=== PATIENT | male | born 1980 | race Two or more races ===

== ENCOUNTER 2020-07-28 16:39 | Inpatient (IN) | payer BC, MEDICAID ==
[~2020-07-28] VITALS: Ht 167.6 cm; Wt 71.1 kg
[2020-07-28] MEDS ORDERED: normal saline 1000ml 1,000 ML IV ONE ×2 (20:25→21:15)
[2020-07-28 20:56] LABS: CLARITY,URINE CLEAR (Clear); COLOR,URINE YELLOW (Yellow); GLUCOSE, URINE 500 mg/dl (Neg); KETONES,URINE >=80 mg/dl (Neg); LEUKOCYTE ESTERASE ,URINE NEGATIVE (Neg); NITRITES, URINE NEGATIVE (Neg); OCCULT BLOOD,URINE MODERATE (Neg); PH,URINE 5.5 (4.8-8.0); PROTEIN,URINE 100 mg/dl (Neg); UROBILINOGEN,URINE 0.2 E.U/dL (0.2-1.0)
[2020-07-28 21:04] LABS: ALBUMIN 4.7 G/DL (3.4-5.0); ANION GAP 25 (8-16); BLOOD UREA NITROGEN 11 MG/DL (7-18); BUN/CREATININE RATIO 9.1 (5.4-32.0); CHLORIDE 101 MMOL/L (99-107); CREATININE 1.21 MG/DL (0.60-1.10); GLUCOSE 241 MG/DL (70-104); SODIUM 136 MMOL/L (135-145); eGFR 67 ML/MIN
[2020-07-28 21:05] LABS: POTASSIUM 3.6 MMOL/L (3.5-5.1)
[2020-07-28 21:07] LABS: UA COLLECTION TYPE CLN CATCH MIDSTREAM
[2020-07-28 21:08] LABS: TOTAL CARBON DIOXIDE 10.2 MMOL/L (24-32)
[2020-07-28] MEDS ORDERED: insulin regular, human U-100 3ml vial - multi-dose IV PRN (21:10)
[2020-07-28] MEDS ORDERED: potassium Cl 20 mEq SR tablet PO PRN ×2 (21:10)
[2020-07-28] MEDS ORDERED: potassium CL 10mEq/100ml bag 100 ML IV PRN ×2 (21:10)
[2020-07-28] MEDS ORDERED: sodium bicarbonate (8.4%) inj. 50 MEQ in dextrose 5% water 500ml 250 ML IV PRN (21:10)
[2020-07-28] MEDS ORDERED: normal saline 1000ml 1,000 ML IV SCH (21:10)
[2020-07-28] MEDS ORDERED: potassium CL 20mEq in D5-1/2NS 1,000 ML IV PRN (21:10)
[2020-07-28] MEDS ORDERED: sodium phosphate inj. 15 MMOL in dextrose 5%-water 250 ML IV PRN (21:10)
[2020-07-28] MEDS ORDERED: sodium bicarbonate (8.4%) inj. 100 MEQ in dextrose 5% water 500ml 500 ML IV PRN (21:10)
[2020-07-28] MEDS ORDERED: Neutra Phos packet PO PRN (21:10)
[2020-07-28] MEDS ORDERED: sodium phosphate inj. 30 MMOL in dextrose 5%-water 250 ML IV PRN (21:10)
[2020-07-28 21:38] LABS: BASOPHILS % (AUTO) 0.2 % (0-1); EOSINOPHILS % (AUTO) 0.1 % (0-6); HEMATOCRIT 54.6 % (42.0-52.0); HEMOGLOBIN 17.9 g/dl (14.0-17.9); LYMPHOCYTES # (AUTO) 0.6 X10'3 (1.1-4.8); LYMPHOCYTES % (AUTO) 10.5 % (21-51); MEAN CORPUSCULAR HEMOGLOBIN 29.9 PG (27.0-31.0); MEAN CORPUSCULAR HGB CONC 32.8 g/dL (33.0-36.5); MEAN PLATELET VOLUME 9.3 FL (7.4-10.4); MONOCYTES # (AUTO) 0.3 X10'3 (0-0.9); MONOCYTES % (AUTO) 4.9 % (2-12); NEUTROPHILS # (AUTO) 5.2 X10'3 (1.8-7.7); NEUTROPHILS % (AUTO) 84.3 % (42-75); PLATELET COUNT 250 X10'3 (140-440); RED CELL DISTRIBUTION WIDTH 13.9 % (11.5-14.5); WHITE BLOOD COUNT 6.1 X10'3 (4.5-11.0)
[2020-07-28 21:39] LABS: PHOSPHORUS 3.2 MG/DL (2.3-4.5)
[2020-07-28 22:10] LABS: BACTERIA,URINE FEW /HPF (Neg); SQUAMOUS EPITHELIAL CELL,UR FEW /LPF (FEW); WBC,URINE 0-4 /HPF (0-4)
[2020-07-28 22:11] LABS: MUCUS STRANDS FEW /LPF (Neg)
[2020-07-28] MEDS ORDERED: NO HOME MEDS (22:14)
[2020-07-28] MEDS: Insulin Reg/NS 100units/100mL 100 ML IV SCH (22:48)
[2020-07-28] MEDS ORDERED: mag hydrox/Alum hydrox/simeth 30ml oral suspension PO ONE (23:15)
--- NOTE | 2020-07-28 23:18 | NUR ---
At time of IV insulin administration, Blood glucose 194. 10 unit insulin bolus not administered. VBpH 7.043, bicarb not administered per protocol. New order for Maalox for pt C/O heart burn
[2020-07-28] MEDS ORDERED: insulin regular, human 10 units/0.1 ml syringe SQ PRN (23:45)
[2020-07-29] MEDS ORDERED: potassium Cl 20 mEq SR tablet PO PRN ×4 (00:30)
[2020-07-29] MEDS ORDERED: insulin regular, human U-100 3ml vial - multi-dose IV PRN (00:30)
[2020-07-29] MEDS ORDERED: sodium phosphate inj. 15 MMOL in dextrose 5%-water 250 ML IV PRN (00:30)
[2020-07-29] MEDS ORDERED: magnesium 2GM in 50ml NS 50 ML IV PRN (00:30)
[2020-07-29] MEDS ORDERED: magnesium 4gm in 100ml NS 100 ML IV PRN (00:30)
[2020-07-29] MEDS ORDERED: magnesium hydroxide 30ml (MOM) UD suspension PO PRN (00:30)
[2020-07-29] MEDS ORDERED: HYDROcodone/acetaminophen 5mg/325mg tablet PO PRN (00:30)
[2020-07-29] MEDS ORDERED: sodium bicarbonate (8.4%) inj. 100 MEQ in dextrose 5% water 500ml 500 ML IV PRN (00:30)
[2020-07-29] MEDS ORDERED: sodium bicarbonate (8.4%) inj. 50 MEQ in dextrose 5% water 500ml 250 ML IV PRN (00:30)
[2020-07-29] MEDS ORDERED: HYDROcodone/acetaminophen 10/325mg tab PO PRN (00:30)
[2020-07-29] MEDS ORDERED: acetaminophen 325mg tablet PO PRN ×2 (00:30)
[2020-07-29] MEDS ORDERED: mag hydrox/Alum hydrox/simeth 30ml oral suspension PO PRN (00:30)
[2020-07-29] MEDS ORDERED: potassium CL 10mEq/100ml bag 100 ML IV PRN ×2 (00:30)
[2020-07-29] MEDS ORDERED: Neutra Phos packet PO PRN (00:30)
[2020-07-29] MEDS ORDERED: sodium phosphate inj. 30 MMOL in dextrose 5%-water 250 ML IV PRN (00:30)
[2020-07-29] MEDS ORDERED: ondansetron/PF 4mg/2ml inj IV PRN (00:30)
[2020-07-29] MEDS ORDERED: ipratropium/albuterol 3ml nebule NEB PRN (00:30)
[2020-07-29 01:10] LABS: ABG BASE EXCESS -16.6 mmol/L (-2.0-2.0); ABG HCO3 7.9 mmol/L (22.0-26.0); ABG OXYGEN SATURATION 98.2 % (94-97); ABG PO2 (T) 113.3 mmHg (75.0-100.0); FCOHb 0.3 % (0.0-3.9); FMetHb 0.3 % (0.0-1.5); FO2Hb 97.6 % (94-97); TOTAL HEMOGLOBIN 15.4 G/dl (14.0-18.0)
[2020-07-29 01:24] LABS: ALBUMIN 3.3 G/DL (3.4-5.0); ANION GAP 21 (8-16); BLOOD UREA NITROGEN 8 MG/DL (7-18); BUN/CREATININE RATIO 7.9 (5.4-32.0); CHLORIDE 107 MMOL/L (99-107); CREATININE 1.01 MG/DL (0.60-1.10); GLUCOSE 156 MG/DL (70-104); SODIUM 139 MMOL/L (135-145); eGFR 83 ML/MIN
[2020-07-29 01:27] LABS: POTASSIUM 2.6 MMOL/L (3.5-5.1); TOTAL CARBON DIOXIDE 10.9 MMOL/L (24-32)
[2020-07-29] MEDS: normal saline 1000ml 1,000 ML IV SCH ×9 (01:38→22:11)
[2020-07-29] MEDS: Insulin Reg/NS 100units/100mL 100 ML IV SCH ×3 (01:39→20:30)
--- NOTE | 2020-07-29 01:39 | NUR ---
CRITICAL LABS K 2.6, CO2 10.9, Phos 1, aware. Will replace according to protocol
[2020-07-29] MEDS: potassium CL 10mEq/100ml bag 100 ML IV PRN ×6 (01:48→21:03)
--- NOTE | 2020-07-29 01:58 | NUR ---
Patient resting comfortably with no requests. Spoke to Dr. Gipson regarding phosphorous of 1.0 and he requests 2 NAPH packets now and then follow normal replacement.
[2020-07-29] MEDS ORDERED: Neutra Phos packet PO ONE (02:00)
[2020-07-29] MEDS ORDERED: Neutra Phos packet PO SCH (02:00)
--- NOTE | 2020-07-29 03:40 | NUR ---
Blood glucose 119 and D5+20K+1/2NS at 250 ml/hr. New orders to decrease insulin at 5 units an hour and continue fluid as ordered.
[2020-07-29 04:33] LABS: ALBUMIN 2.8 G/DL (3.4-5.0); ANION GAP 17 (8-16); BLOOD UREA NITROGEN 8 MG/DL (7-18); CALCIUM 7.2 MG/DL (8.5-10.1); CHLORIDE 108 MMOL/L (99-107); CREATININE 0.89 MG/DL (0.60-1.10); GLUCOSE 129 MG/DL (70-104); SODIUM 138 MMOL/L (135-145); eGFR > 90 ML/MIN
[2020-07-29] MEDS: potassium CL 20mEq in D5-1/2NS 1,000 ML IV PRN ×3 (04:34→13:22)
[2020-07-29 04:41] LABS: POTASSIUM 2.9 MMOL/L (3.5-5.1); TOTAL CARBON DIOXIDE 13.3 MMOL/L (24-32)
--- NOTE | 2020-07-29 04:48 | NUR ---
Potassium 2.9, CO2 13.3, PHOS 1
--- NOTE | 2020-07-29 06:13 | NUR ---
notified of Blood Glucose of 97. New orders to Lower insulin to 1 unit/hr. and feed patient
[2020-07-29] MEDS ORDERED: K and/or MAG REPLACEMENT MC SCH ×2 (08:00)
[2020-07-29] MEDS: K and/or MAG REPLACEMENT MC SCH ×2 (08:00→20:00)
[2020-07-29 08:41] LABS: BASOPHILS % (AUTO) 0.2 % (0-1); EOSINOPHILS # (AUTO) 0.1 X10'3 (0-0.9); EOSINOPHILS % (AUTO) 0.9 % (0-6); HEMATOCRIT 39.4 % (42.0-52.0); HEMOGLOBIN 13.5 g/dl (14.0-17.9); LYMPHOCYTES # (AUTO) 1.2 X10'3 (1.1-4.8); LYMPHOCYTES % (AUTO) 21.3 % (21-51); MEAN CORPUSCULAR HEMOGLOBIN 30.5 PG (27.0-31.0); MEAN CORPUSCULAR HGB CONC 34.2 g/dL (33.0-36.5); MEAN CORPUSCULAR VOLUME 89.3 FL (78-98); MEAN PLATELET VOLUME 8.6 FL (7.4-10.4); MONOCYTES # (AUTO) 0.7 X10'3 (0-0.9); MONOCYTES % (AUTO) 11.3 % (2-12); NEUTROPHILS # (AUTO) 3.8 X10'3 (1.8-7.7); NEUTROPHILS % (AUTO) 66.3 % (42-75); PLATELET COUNT 158 X10'3 (140-440); RED BLOOD COUNT 4.41 X10'6 (4.70-6.10); RED CELL DISTRIBUTION WIDTH 13.4 % (11.5-14.5); WHITE BLOOD COUNT 5.8 X10'3 (4.5-11.0)
[2020-07-29 08:55] LABS: ALBUMIN 2.8 G/DL (3.4-5.0); ANION GAP 12 (8-16); BLOOD UREA NITROGEN 7 MG/DL (7-18); BUN/CREATININE RATIO 8.2 (5.4-32.0); CALCIUM 7.2 MG/DL (8.5-10.1); CHLORIDE 107 MMOL/L (99-107); CREATININE 0.85 MG/DL (0.60-1.10); GLUCOSE 159 MG/DL (70-104); MAGNESIUM 1.8 MG/DL (1.5-2.4); PHOSPHORUS 1.3 MG/DL (2.3-4.5); POTASSIUM 3.5 MMOL/L (3.5-5.1); SODIUM 136 MMOL/L (135-145); TOTAL CARBON DIOXIDE 16.7 MMOL/L (24-32); eGFR > 90 ML/MIN
[2020-07-29 16:31] LABS: ALANINE AMINOTRANSFERASE 23 U/L (12-78); ALBUMIN 3.3 G/DL (3.4-5.0); ALKALINE PHOSPHATASE 107 IU/L (46-116); ANION GAP 11 (8-16); ASPARTATE AMINO TRANSFERASE 12 U/L (10-37); BILIRUBIN,TOTAL 0.7 MG/DL (0.1-1.0); BLOOD UREA NITROGEN 5 MG/DL (7-18); BUN/CREATININE RATIO 6.2 (5.4-32.0); CALCIUM 7.9 MG/DL (8.5-10.1); CHLORIDE 104 MMOL/L (99-107); CREATININE 0.81 MG/DL (0.60-1.10); GLUCOSE 168 MG/DL (70-104); SODIUM 135 MMOL/L (135-145); TOTAL CARBON DIOXIDE 20.5 MMOL/L (24-32); TOTAL PROTEIN 6.7 G/DL (6.4-8.2); eGFR > 90 ML/MIN
[2020-07-29 16:33] LABS: PHOSPHORUS 1.1 MG/DL (2.3-4.5); POTASSIUM 2.6 MMOL/L (3.5-5.1)
--- NOTE | 2020-07-29 17:58 | NUR ---
ORDERS FROM DR KIM, GO TO 2 UNITS/HR AND FLUIDS TO 100ML/HR. GIVE 12 UNITS OF LANTUS WAIT 2 HOURS AND THEN FEED THE PT. DFR JUDY NOTIFIED OF LAB DRAW AT 1602.
--- NOTE | 2020-07-29 19:45 | NUR ---
Patient in room ED 14. I have received report from Tess CHEN from the ED and had the opportunity to ask questions and assume patient care.
[2020-07-29] MEDS ORDERED: enoxaparin 40mg/0.4ml syringe SQ SCH (20:00)
[2020-07-29] MEDS ORDERED: dextrose ORAL solution 15 GM/59 ML bottle PO PRN ×2 (20:45)
[2020-07-29] MEDS ORDERED: dextrose 50%-water 50ml dispensing syringe IV PRN ×2 (20:45)
[2020-07-29] MEDS ORDERED: insulin Lispro (HumaLOG) vial - multi-dose SQ SCH (20:45)
[2020-07-29] MEDS ORDERED: MESSAGE TO PHARMACY PO ONE (20:45)
[2020-07-29] MEDS ORDERED: glucagon, human recombinant 1mg kit SUBCUT PRN (20:45)
[2020-07-29] MEDS ORDERED: insulin glargine (Lantus) pen - multi-dose SQ SCH (21:00)
[2020-07-29 22:00] VITALS: BP 127/85
[2020-07-30] MEDS: potassium CL 10mEq/100ml bag 100 ML IV PRN ×5 (00:45→04:52)
--- NOTE | 2020-07-30 00:45 | NUR ---
fourth bag of potassium 10mEq scanned but did not save. medication was given at 2245
[2020-07-30 02:00] VITALS: BP 125/93
[2020-07-30 05:52] LABS: BASOPHILS % (AUTO) 0.3 % (0-1); EOSINOPHILS # (AUTO) 0.1 X10'3 (0-0.9); EOSINOPHILS % (AUTO) 1.2 % (0-6); HEMATOCRIT 42.1 % (42.0-52.0); HEMOGLOBIN 14.4 g/dl (14.0-17.9); LYMPHOCYTES # (AUTO) 1.6 X10'3 (1.1-4.8); LYMPHOCYTES % (AUTO) 27.3 % (21-51); MEAN CORPUSCULAR HEMOGLOBIN 30.2 PG (27.0-31.0); MEAN CORPUSCULAR HGB CONC 34.1 g/dL (33.0-36.5); MEAN CORPUSCULAR VOLUME 88.5 FL (78-98); MEAN PLATELET VOLUME 9.4 FL (7.4-10.4); MONOCYTES # (AUTO) 0.6 X10'3 (0-0.9); MONOCYTES % (AUTO) 9.8 % (2-12); NEUTROPHILS # (AUTO) 3.6 X10'3 (1.8-7.7); NEUTROPHILS % (AUTO) 61.4 % (42-75); PLATELET COUNT 185 X10'3 (140-440); RED BLOOD COUNT 4.76 X10'6 (4.70-6.10); WHITE BLOOD COUNT 5.9 X10'3 (4.5-11.0)
[2020-07-30 05:59] LABS: ALANINE AMINOTRANSFERASE 22 U/L (12-78); ALBUMIN/GLOBULIN RATIO 0.9 (1.1-1.5); ALKALINE PHOSPHATASE 98 IU/L (46-116); ANION GAP 14 (8-16); ASPARTATE AMINO TRANSFERASE 14 U/L (10-37); BILIRUBIN,TOTAL 0.6 MG/DL (0.1-1.0); BLOOD UREA NITROGEN 5 MG/DL (7-18); BUN/CREATININE RATIO 7.7 (5.4-32.0); CHLORIDE 105 MMOL/L (99-107); CREATININE 0.65 MG/DL (0.60-1.10); GLUCOSE 188 MG/DL (70-104); MAGNESIUM 1.8 MG/DL (1.5-2.4); PHOSPHORUS 1.7 MG/DL (2.3-4.5); POTASSIUM 3.1 MMOL/L (3.5-5.1); SODIUM 138 MMOL/L (135-145); TOTAL CARBON DIOXIDE 18.8 MMOL/L (24-32); TOTAL PROTEIN 6.2 G/DL (6.4-8.2); eGFR > 90 ML/MIN
[2020-07-30 06:00] VITALS: BP 130/86
--- NOTE | 2020-07-30 06:03 | NUR ---
Patient in room PCU 3009. I have received report from Yahir and had the opportunity to ask questions and assume patient care.
--- NOTE | 2020-07-30 06:34 | NUR ---
Problems reprioritized. Patient report given, questions answered & plan of care reviewed with Jessica CHEN and [employer].
[2020-07-30] MEDS: K and/or MAG REPLACEMENT MC SCH (08:00)
[2020-07-30] MEDS: normal saline 1000ml 1,000 ML IV SCH (08:23)
[2020-07-30 11:40] VITALS: BP 129/91
[2020-07-30] MEDS ORDERED: LANTUS SQ (12:09)
[2020-07-30] MEDS ORDERED: potassium Cl 20 mEq SR tablet PO STA (12:41)
--- NOTE | 2020-07-30 14:39 | NUR ---
Patient discharged via family and taken from unit via ambulation with x1 staff. Patient PIV x2 removed with cannulas intact. Patient alert, oriented and in no apparent distress at time of discharge. Patient was given discharge instructions which included the diabetes survival guide and information about hyperglycemia. Patient stated an understanding of both the symptoms of hyper and hypoglycemia. Patient was also educated on his new medication, Lantus. Patient understood that he will be taking his Lantus at bedtime. Patient was also given a prescription for Accu check machine as well as lancets and testing strips. Patient stated an understanding of how to check his sugar and felt prepared to take care of this at home. Patient stated that he has a follow up appointment already set for 2019. Patient stated an understanding of the importance of making it to this appointment. Patient took all belongings with him including his discharge instructions. Patient was given 4 mEq of K-Dur prior to discharge per MD order. MD also stated not to cover the 1200 blood sugar of 208 due to the risk of dropping the patient's blood sugar and him not being in the hospital for us to monitor.
--- NOTE | 2020-07-30 14:52 | NUR ---
[facility] called and stated that the Lantus is not covered by the patient's insurance and that the medication Basaglar would be. paged to ask if this can be changed. Awaiting response.
--- NOTE | 2020-07-30 15:02 | NUR ---
Spoke with MD about insulin change. MD agreed to Basaglar and 12 unit dose was confirmed for bedtime. [facility] called regarding this change and the pharmacist stated they would make the change. Will notify patient.
--- NOTE | 2020-07-30 15:10 | NUR ---
Patient was informed of the change in medications. Patient thanked us for the call.
== END 2020-07-30 13:49 | disposition home or self-care (01) | DRG 420 ==
LOC: ER 16:39 → ED HOLD 07-29 00:29 → PCU 3S 07-29 20:15
PROVIDERS: ADMIT Family Medicine; ATTEND Family Medicine
DX: E10.10 Type 1 diabetes mellitus with ketoacidosis without coma (principal); F12.90 Cannabis use, unspecified, uncomplicated; Z79.4 Long term (current) use of insulin; Z83.3 Family history of diabetes mellitus; Z91.14 Patient's other noncompliance with medication regimen; E87.6 Hypokalemia; E83.39 Other disorders of phosphorus metabolism
CPT/HCPCS: 36415; 36600; 80048; 80053; 81001; 82800; 82803; 82948; 83036; 83735; 84100; 85018; 85025; 87081; 96360; 99285; G0378; J1650; J1815; J3480; J7030

== ENCOUNTER 2023-02-25 09:47 | Emergency (ER) | payer MEDICAID, OTHER ==
[~2023-02-25] VITALS: Ht 167.6 cm; Wt 76.4 kg
[2023-02-25 09:56] VITALS: BP 134/93
[2023-02-25] MEDS ORDERED: NAPR-56 PO (10:42)
[2023-02-25] MEDS ORDERED: PENI250T2 PO (10:42)
== END 2023-02-25 11:00 | disposition home or self-care (01) ==
LOC: ER 09:47
DX: K08.89 Other specified disorders of teeth and supporting structures (principal); E11.9 Type 2 diabetes mellitus without complications; Z79.899 Other long term (current) drug therapy
CPT/HCPCS: 99283

== ENCOUNTER 2024-08-11 23:35 | Emergency (ER) | payer MEDICAID, OTHER ==
[~2024-08-11] VITALS: Ht 165.1 cm; Wt 69.5 kg
[2024-08-11 23:36] VITALS: TEMP 97.4
[2024-08-12 00:21] LABS: BASOPHILS % (AUTO) 0.3 % (0-1); EOSINOPHILS % (AUTO) 0.9 % (0-6); HEMATOCRIT 45.6 % (42.0-52.0); HEMOGLOBIN 15.2 g/dl (14.0-17.9); LYMPHOCYTES # (AUTO) 1.5 X10'3 (1.1-4.8); LYMPHOCYTES % (AUTO) 28.6 % (21-51); MEAN CORPUSCULAR HEMOGLOBIN 29.6 PG (27.0-31.0); MEAN CORPUSCULAR HGB CONC 33.4 g/dL (33.0-36.5); MEAN CORPUSCULAR VOLUME 88.6 FL (78-98); MEAN PLATELET VOLUME 8.6 FL (7.4-10.4); MONOCYTES # (AUTO) 0.5 X10'3 (0-0.9); MONOCYTES % (AUTO) 8.7 % (2-12); NEUTROPHILS # (AUTO) 3.2 X10'3 (1.8-7.7); NEUTROPHILS % (AUTO) 61.5 % (42-75); PLATELET COUNT 197 X10'3 (140-440); RED BLOOD COUNT 5.14 X10'6 (4.70-6.10); RED CELL DISTRIBUTION WIDTH 13.2 % (11.5-14.5); WHITE BLOOD COUNT 5.2 X10'3 (4.5-11.0)
[2024-08-12 00:31] LABS: ALANINE AMINOTRANSFERASE 22 U/L (12-78); ALBUMIN 3.6 G/DL (3.4-5.0); ALKALINE PHOSPHATASE 134 IU/L (46-116); ANION GAP 20 (8-16); ASPARTATE AMINO TRANSFERASE 18 U/L (10-37); BILIRUBIN,TOTAL 0.6 MG/DL (0.1-1.0); BLOOD UREA NITROGEN 13 MG/DL (7-18); CALCIUM 8.3 MG/DL (8.5-10.1); CHLORIDE 96 MMOL/L (99-107); CREATININE 1.18 MG/DL (0.60-1.10); GLUCOSE 378 MG/DL (70-104); POTASSIUM 3.6 MMOL/L (3.5-5.1); SODIUM 133 MMOL/L (135-145); TOTAL CARBON DIOXIDE 17.2 MMOL/L (24-32); TOTAL PROTEIN 7.1 G/DL (6.4-8.2); eCRCL 71 ML/MIN; eGFR 68 ML/MIN
[2024-08-12] MEDS: normal saline 1000ml 1,000 ML IV ONE ×2 (00:37→02:21)
[2024-08-12 01:00] LABS: ABG BASE EXCESS -12.8 mmol/L (-2.0-3.0); ABG HCO3 11.3 mmol/L (21.0-28.0); ABG OXYGEN SATURATION 97.6 % (94.0-98.0); ABG PCO2 (T) 22.4 mmHg (35.0-48.0); ABG PH (T) 7.317 (7.350-7.450); ABG PO2 (T) 106.3 mmHg (83.0-108.0); ALLEN'S TEST POSITIVE; FCOHb 0.3 % (0.5-1.5); FHHb 2.4 % (0.0-5.0); FO2Hb 97.3 % (94.0-98.0); MODE ROOM AIR; PATIENT TEMPERATURE 36.3; TOTAL HEMOGLOBIN 15.5 G/dl (13.5-17.5)
[2024-08-12 01:03] LABS: BILIRUBIN,URINE NEGATIVE (Neg); CLARITY,URINE CLEAR (Clear); COLOR,URINE YELLOW (Yellow); GLUCOSE, URINE >=1000 mg/dl (Neg); KETONES,URINE >=80 mg/dl (Neg); LEUKOCYTE ESTERASE ,URINE NEGATIVE (Neg); NITRITES, URINE NEGATIVE (Neg); OCCULT BLOOD,URINE TRACE-INTACT (Neg); PH,URINE 5.5 (4.8-8.0); PROTEIN,URINE TRACE mg/dl (Neg); UROBILINOGEN,URINE 0.2 E.U/dL (0.2-1.0)
[2024-08-12] MEDS: insulin regular, human 10 units/0.1 ml syringe SQ ONE (01:17)
[2024-08-12 01:18] LABS: UA COLLECTION TYPE VOIDED
[2024-08-12 01:30] LABS: SQUAMOUS EPITHELIAL CELL,UR FEW /LPF (FEW); WBC,URINE NONE SEEN /HPF (0-4)
[2024-08-12 01:31] LABS: BACTERIA,URINE NONE SEEN /HPF (Neg); MUCUS STRANDS NONE SEEN /LPF (Neg); RBC,URINE NONE SEEN /HPF (0-2)
[2024-08-12 01:36] LABS: URINE AMPHETAMINE SCREEN NEGATIVE (Neg); URINE BARBITUATE SCREEN NEGATIVE (Neg); URINE BENZODIAZEPINES SCREEN NEGATIVE (Neg); URINE CANNABINOID SCREEN NEGATIVE (Neg); URINE COCAINE SCREEN NEGATIVE (Neg); URINE METHADONE SCREEN NEGATIVE (Neg); URINE OPIATE SCREEN NEGATIVE (Neg); URINE PHENCYCLIDINE SCREEN NEGATIVE (Neg)
[2024-08-12 03:30] VITALS: BP 129/90; PULSE 81; RESP 16; O2SAT 97
[2024-08-12] MEDS ORDERED: INSU100I8 SQ (04:01)
== END 2024-08-12 04:28 | disposition home or self-care (01) ==
LOC: ER 23:36
DX: E87.5 Hyperkalemia (principal); E11.65 Type 2 diabetes mellitus with hyperglycemia
CPT/HCPCS: 36415; 36600; 80053; 80305; 81001; 82803; 82948; 85018; 85025; 96360; 96361; 96372; 99285; J1815; J7030